=== PATIENT | female | born 1990 | race Two or more races ===

== ENCOUNTER 2017-05-13 20:22 | Emergency (ER) | payer OTHER ==
[2017-05-13 20:30] VITALS: BP 124/68; PULSE 96; TEMP 98.4; BMI 32.5
--- NOTE | 2017-05-13 20:56 | PDOC ---
History of Present Illness - General History Source: Patient Exam Limitations: No Limitations - History of Present Illness Initial Comments: 05/13/17 22:39 Patient is a 26 year old female, A0 who is 16 weeks , with a significant past medical history of anemia who presents to the ED with complaints of nausea/vomiting that began 3 days ago. Patient reports experiencing nausea and vomiting suddenly 3 days ago while at home. She reports experiencing 3 episodes of vomiting as well as 1 episodes of diarrhea. Patient reports experiencing upper midline abdominal pain secondary to vomiting. She reports experiencing slight fever for 3 days, stating that her other children have been showing feverish symptoms recently. Denies chest pain, Sob. Denies fever, chills. Denies out of state travellings. Denies any other symptoms. Allergies: None Social history: No smoking. No alcohol. No illicit drugs. Surgical history: None PMD: None <Karson Womack - Last Filed: 05/13/17 22:39> <Rajwinder Blevins - Last Filed: 05/13/17 22:44> - General Chief Complaint: Nausea/Vomiting Stated Complaint: COLD SYMPTOMS/16 WKS Time Seen by Provider: 05/13/17 20:47 Past History <Karson Womack - Last Filed: 05/13/17 22:39> - Past Medical History COPD: No - Suicide/Smoking/Psychosocial Hx Smoking History: Never smoked Have you smoked in the past 12 months: No Information on smoking cessation initiated: No Hx Alcohol Use: No Drug/Substance Use Hx: No Substance Use Type: None <Rajwinder Blevins - Last Filed: 05/13/17 22:44> - Past Medical History Allergies/Adverse Reactions: Allergies Allergy/AdvReac Type Severity Reaction Status Date / Time No Known Allergies Allergy Verified 05/13/17 20:30 Home Medications: Ambulatory Orders Nitrofurantoin Monohyd/M-Cryst [Macrobid -] 100 mg PO BID #6 capsule 05/13/17 Review of Systems - Review of Systems Able to Perform ROS?: Yes Comments:: 05/13/17 22:39 GENERAL/CONSTITUTIONAL: No fever or chills. No weakness. HEAD, EYES, EARS, NOSE AND THROAT: No change in vision. No ear pain or discharge. No sore throat. CARDIOVASCULAR: No chest pain or shortness of breath. RESPIRATORY: No cough, wheezing, or hemoptysis. GASTROINTESTINAL: +Nausea. +vomiting. +diarrhea. +Abdominal pain No constipation. GENITOURINARY: No dysuria, frequency, or change in urination. MUSCULOSKELETAL: No joint or muscle swelling or pain. No neck or back pain. SKIN: No rash NEUROLOGIC: No headache, vertigo, loss of consciousness, or change in strength/ sensation. ENDOCRINE: No increased thirst. No abnormal weight change. HEMATOLOGIC/LYMPHATIC: No anemia, easy bleeding, or history of blood clots. ALLERGIC/IMMUNOLOGIC: No hives or skin allergy. All Other Systems: Reviewed and Negative <Karson Womack - Last Filed: 05/13/17 22:39> *Physical Exam - Vital Signs Last Vital Signs Temp Pulse Resp BP Pulse Ox 98.4 F 96 H 20 124/68 100 05/13/17 20:25 05/13/17 20:25 05/13/17 20:25 05/13/17 20:25 05/13/17 20:25 - Physical Exam Comments: 05/13/17 22:39 GENERAL: Awake, alert, and fully oriented, in no acute distress HEAD: No signs of trauma EYES: PERRLA, EOMI, sclera anicteric, conjunctiva clear ENT: Auricles normal inspection, hearing grossly normal, nares patent, oropharynx clear without exudates. Moist mucosa NECK: Normal ROM, supple, no lymphadenopathy, JVD, or masses LUNGS: Breath sounds equal, clear to auscultation bilaterally. No wheezes, and no crackles HEART: Regular rate and rhythm, normal S1 and S2, no murmurs, rubs or gallops ABDOMEN: Soft, nontender, normoactive bowel sounds. No guarding, no rebound. No masses EXTREMITIES: Normal range of motion, no edema. No clubbing or cyanosis. No cords, erythema, or tenderness NEUROLOGICAL: Cranial nerves II through XII grossly intact. Normal speech, normal gait SKIN: Warm, Dry, normal turgor, no rashes or lesions noted. <Karson Womack - Last Filed: 05/13/17 22:39> - Vital Signs Last Vital Signs Temp Pulse Resp BP Pulse Ox 98.4 F 96 H 20 124/68 100 05/13/17 20:25 05/13/17 20:25 05/13/17 20:25 05/13/17 20:25 05/13/17 20:25 <Rajwinder Blevins - Last Filed: 05/13/17 22:44> ED Treatment Course - LABORATORY CBC & Chemistry Diagram: 05/13/17 21:23 05/13/17 21:23 - ADDITIONAL ORDERS Additional order review: Laboratory Results 05/13/17 05/13/17 22:20 21:23 Sodium 138 Potassium 3.4 L Chloride 104 Carbon Dioxide 24 Anion Gap 10 BUN 5 L Creatinine 0.5 L Creat Clearance w eGFR > 60 Random Glucose 78 Calcium 8.3 L Total Bilirubin 0.3 AST 10 L ALT 14 Alkaline Phosphatase 60 Total Protein 6.1 L Albumin 2.5 L Urine Color Ltyellow Urine Appearance Clear Urine pH 6.0 Ur Specific [place] 1.009 Urine Protein Negative Urine Glucose (UA) Negative Urine Ketones Trace H Urine Blood Negative Urine Nitrite Negative Urine Bilirubin Negative Urine Urobilinogen 2.0 H Ur Leukocyte Esterase 2+ H 05/13/17 21:23 Influenza Types A,B Antigen (CHRISTINE) - Final Nasopharyngeal Swab - Final 05/13/17 21:23 RBC 4.03 MCV 75.6 L MCHC 32.6 RDW 16.3 H MPV 8.9 Neutrophils % 76.0 Lymphocytes % 15.3 Monocytes % 7.5 Eosinophils % 0.6 Basophils % 0.6 - Medications Given in the ED: ED Medications Discontinued Medications Generic Name Dose Route Start Last Admin Trade Name Freq PRN Reason Stop Dose Admin Ondansetron HCl 4 mg 05/13/17 22:12 05/13/17 22:28 Zofran Injection IVPB 05/13/17 22:13 4 mg ONCE ONE Administration Potassium Chloride 40 meq 05/13/17 22:12 05/13/17 22:28 K-Dur - PO 05/13/17 22:13 40 meq ONCE ONE Administration Sodium Chloride 1,000 ml 05/13/17 20:57 05/13/17 21:37 Normal Saline - IV 05/13/17 20:58 1,000 ml ONCE ONE Administration <Karson Womack - Last Filed: 05/13/17 22:39> - LABORATORY CBC & Chemistry Diagram: 05/13/17 21:23 05/13/17 21:23 <Rajwinder Blevins - Last Filed: 05/13/17 22:44> *DC/Admit/Observation/Transfer - Attestations Scribe Attestion: 05/13/17 22:39 Documentation prepared by Karson Womack, acting as medical accounts receivable specialist for Rajwinder Blevins MD/DO. <Karson Womack - Last Filed: 05/13/17 22:39> - Discharge Dispostion Admit: No <Rajwinder Blevins - Last Filed: 05/13/17 22:44> Diagnosis at time of Disposition: UTI (urinary tract infection), Morning sickness, Gastroenteritis - Discharge Dispostion Disposition: HOME Condition at time of disposition: Improved - Prescriptions Prescriptions: Nitrofurantoin Monohyd/M-Cryst [Macrobid -] 100 mg PO BID #6 capsule - Referrals Referrals: ON STAFF,NOT [Primary Care Provider] - - Patient Instructions Printed Discharge Instructions: Hyperemesis Gravidarum, Urinary Tract Infection , DI for Viral Gastroenteritis -- Adult - Post Discharge Activity
[2017-05-13] MEDS ORDERED: SODIUM CHLORIDE 0.9% 500 ML INFUS.BAG IV ONE (20:57)
[2017-05-13 21:36] LABS: BASO % 0.6 % (0-2.0); EOS % 0.6 % (0-4.5); HEMATOCRIT 30.5 % (32.4-45.2); HEMOGLOBIN 9.9 GM/dL (10.7-15.3); LYMPH % 15.3 % (8-40); MCH 24.7 pg (25.7-33.7); MCHC 32.6 g/dl (32.0-36.0); MEAN CELL VOLUME 75.6 fl (80-96); MEAN PLT VOLUME 8.9 fl (7.5-11.1); MONO % 7.5 % (3.8-10.2); PLATELET COUNT 151 K/MM3 (134-434); RBC 4.03 M/mm3 (3.60-5.2); RDW 16.3 % (11.6-15.6); WHITE BLOOD COUNT 9.3 K/mm3 (4.0-10.0)
[2017-05-13 22:09] LABS: ALBUMIN 2.5 g/dl (3.4-5.0); ANION GAP 10 (8-16); BILIRUBIN,TOTAL 0.3 mg/dL (0.2-1.0); BLOOD UREA NITROGEN 5 mg/dL (7-18); CALCIUM 8.3 mg/dL (8.5-10.1); CHLORIDE 104 mmol/L (98-107); CO2 24 mmol/L (21-32); CREATININE 0.5 mg/dL (0.55-1.02); GLUCOSE,RANDOM 78 mg/dL (74-106); POTASSIUM 3.4 mmol/L (3.5-5.1); SGOT/AST 10 U/L (15-37); SGPT/ALT 14 U/L (12-78); SODIUM 138 mmol/L (136-145); TOT PROT 6.1 g/dl (6.4-8.2)
[2017-05-13 22:10] LABS: ALK PHOS 60 U/L (45-117)
[2017-05-13] MEDS ORDERED: ONDANSETRON 4 MG/2 ML VIAL IVPB ONE (22:12)
[2017-05-13] MEDS ORDERED: POTASSIUM CHLORIDE TABS 20 MEQ TABLET.ER (FP) PO ONE ×2 (22:12→22:23)
[2017-05-13] MEDS ORDERED: ONDANSETRON 4 MG/2 ML VIAL ONE (22:23)
[2017-05-13 22:34] LABS: URINE APPEARANCE CLEAR; URINE BILIRUBIN NEGATIVE (NEGATIVE); URINE BLOOD NEGATIVE (NEGATIVE); URINE COLOR LTYELLOW; URINE GLUCOSE (UA) NEGATIVE (NEGATIVE); URINE KETONE TRACE (NEGATIVE); URINE LEUK ESTERASE 2+ (NEGATIVE); URINE NITRITE NEGATIVE (NEGATIVE); URINE PROTEIN NEGATIVE (NEGATIVE)
[2017-05-13 22:37] LABS: EPI CELLS RARE /HPF (FEW); URINE BACTERIA RARE /hpf (NONE SEEN); URINE MUCUS RARE
[2017-05-13] MEDS ORDERED: NITROFURANTOIN MACROCRYSTAL 50 MG CAPSULE (FP) PO SCH (22:45)
[2017-05-13] MEDS ORDERED: NITROFURANTOIN MACROCRYSTAL 50 MG CAPSULE (FP) ONE (22:56)
== END 2017-05-13 23:03 | disposition home or self-care (01) ==
LOC: JER 20:22
PROC: 3E033GC Introduction of Other Therapeutic Substance into Peripheral Vein, Percutaneous Approach (ICD-10-PCS; principal; 2017-05-13)
DX: O26.892 Other specified pregnancy related conditions, second trimester (principal); O21.0 Mild hyperemesis gravidarum; O23.32 Infections of other parts of urinary tract in pregnancy, second trimester; O99.612 Diseases of the digestive system complicating pregnancy, second trimester; K52.9 Noninfective gastroenteritis and colitis, unspecified; Z3A.16 16 weeks gestation of pregnancy
CPT/HCPCS: 36415; 80053; 81003; 81015; 85025; 87804; 96372; 99283-25

== ENCOUNTER 2017-10-19 07:05 | Inpatient (IN) | payer OTHER ==
[2017-10-19 08:05] LABS: BASO % 0.8 % (0-2.0); EOS % 0.5 % (0-4.5); HEMATOCRIT 25.6 % (32.4-45.2); MCHC 31.1 g/dl (32.0-36.0); MEAN CELL VOLUME 70.8 fl (80-96); MONO % 7.6 % (3.8-10.2); NEUT % 72.1 % (42.8-82.8); PLATELET COUNT 143 K/MM3 (134-434); RBC 3.62 M/mm3 (3.60-5.2); RDW 20.8 % (11.6-15.6); WHITE BLOOD COUNT 10.4 K/mm3 (4.0-10.0)
[2017-10-19 08:09] VITALS: BMI 37.3
[2017-10-19] MEDS ORDERED: DINOPROSTONE 10 MG VAGINAL SUPPOSITORY VG ONE (08:20)
[2017-10-19 08:22] LABS: ALBUMIN 2.3 g/dl (3.4-5.0); ANION GAP 9 (8-16); BILIRUBIN,TOTAL 0.5 mg/dL (0.2-1.0); BLOOD UREA NITROGEN 6 mg/dL (7-18); CALCIUM 8.2 mg/dL (8.5-10.1); CHLORIDE 108 mmol/L (98-107); CO2 21 mmol/L (21-32); CREATININE 0.5 mg/dL (0.55-1.02); GLUCOSE,RANDOM 80 mg/dL (74-106); POTASSIUM 3.7 mmol/L (3.5-5.1); SGOT/AST 13 U/L (15-37); SGPT/ALT 14 U/L (12-78); SODIUM 138 mmol/L (136-145); TOT PROT 5.9 g/dl (6.4-8.2)
[2017-10-19 08:23] LABS: ALK PHOS 83 U/L (45-117)
[2017-10-19 08:26] LABS: INR 0.96 (0.82-1.09); PROTHROMBIN TIME (PATIENT) 10.8 SEC (9.7-13.0)
[2017-10-19] MEDS ORDERED: PROMETHAZINE HCL 25 MG/1 ML VIAL IVPUSH ONE (08:29)
[2017-10-19] MEDS ORDERED: BUTORPHANOL TARTRATE 1 MG/ML VIAL IVPB ONE ×2 (08:29→13:35)
[2017-10-19] MEDS ORDERED: ELECTROLYTE-148 SOLN 1,000 ML IV SCH (08:30)
[2017-10-19] MEDS ORDERED: SODIUM PHOSPHATE/NA BIPHOS 133 ML ENEMA PR ONE (08:31)
[2017-10-19] MEDS ORDERED: AMPICILLIN - 2 GM in SODIUM CHLORIDE 100 ML IVPB ONE (08:35)
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
[2017-10-19 09:23] LABS: URINE APPEARANCE CLEAR; URINE BILIRUBIN NEGATIVE (<2.0 mg/dL); URINE COLOR YELLOW; URINE GLUCOSE (UA) NEGATIVE (NEGATIVE); URINE KETONE NEGATIVE (NEGATIVE); URINE NITRITE NEGATIVE (NEGATIVE); URINE PROTEIN NEGATIVE (NEGATIVE); URINE UROBILINOGEN 4.0 E.U/dl mg/dL (0.2-1.0)
[2017-10-19 09:32] LABS: URINE LEUK ESTERASE 3+ (NEGATIVE)
[2017-10-19 09:44] LABS: EPI CELLS FEW /HPF (FEW); URINE MUCUS RARE
[2017-10-19 09:51] LABS: COCAINE, UR NEGATIVE ng/ml (CUTOFF=300); METHADONE, UR NEGATIVE ng/ml (CUTOFF=300); OPIATES, URI NEGATIVE ng/ml (CUTOFF=300); PHENCYCLIDINE,URINE NEGATIVE ng/ml (CUTOFF=25); URINE AMPHETAMINES NEGATIVE ng/ml (CUTOFF=500); URINE BARBITURATES NEGATIVE ng/ml (CUTOFF=200); URINE BENZODIAZEPINES NEGATIVE ng/ml (CUTOFF=200)
[2017-10-19] MEDS ORDERED: AMPICILLIN SODIUM 2 GM VIAL ONE (10:10)
[2017-10-19 10:53] LABS: ANISOCYTOSIS 3+; MACROCYTOSIS 0; PLATELET ESTIMATE DECREASED; TEAR DROP CELLS 1+
[2017-10-19] MEDS ORDERED: BUTORPHANOL TARTRATE 1 MG/ML VIAL ONE ×4 (11:11→13:40)
[2017-10-19] MEDS ORDERED: PROMETHAZINE HCL 25 MG/1 ML VIAL ONE ×2 (11:11→13:40)
[2017-10-19] MEDS ORDERED: AMPICILLIN - 1 GM in SODIUM CHLORIDE 100 ML IVPB SCH ×2 (12:35→14:00)
[2017-10-19] MEDS ORDERED: AMPICILLIN SODIUM 1 GM VIAL ONE (13:17)
[2017-10-19] MEDS ORDERED: PROMETHAZINE HCL 25 MG/1 ML VIAL IVPB ONE (13:35)
[2017-10-19] MEDS ORDERED: OXYTOCIN 20 UNITS in 0.9% NS 20 UNIT/1,000 ML INFUS.BAG IV ONE ×2 (15:11→16:51)
--- NOTE | 2017-10-19 15:18 | PN ---
Progress Note, Labor Vaginal Exam #1 Labor Exam Date: 10/19/17 Labor Exam Time: 15:05 Heart Rate (range): 130 Dilatation: 7-8 Effacement (%): 90 Amniotic Membrane Status: Ruptured (AROM clear) Presentation: Vertex/Position Station: -1 Remarks: fhr cat-2 , variable decels uc 1-2-3 min cervidil removesd 1.50 PM stadol 2 mg + phenrgan 25 mg iv stat given Selected Entries 10/19/17 14:00 Temperature 98.5 F Pulse Rate 105 H Blood Pressure 127/55 Vaginal Exam #2 Labor Exam Date: 10/19/17 Labor Exam Time: 15:16 Heart Rate (range): 140 Dilatation: 10 Effacement (%): 100 Amniotic Membrane Status: Ruptured Station: +2 Remarks: fhr cat-2 uc 1-23 min pt pushing
[2017-10-19] MEDS: OXYTOCIN 20 UNITS in 0.9% NS 20 UNIT/1,000 ML INFUS.BAG IV SCH ×2 (15:25→16:50)
[2017-10-19] MEDS ORDERED: LIDOCAINE HCL 1% PRESERVATIVE FREE - 30ML VIAL ONE (15:27)
[2017-10-19 15:45] LABS: ARTERIAL BLD GAS O2 SATURATION 11.8 % (90-98.9); ARTERIAL BLOOD GAS BASE EXCESS -4.2 meq/l (-2-2); ARTERIAL BLOOD GAS PCO2 52.7 mmHg (35-45); ARTERIAL BLOOD GAS PO2 11.3 mmHg (80-100); ARTERIAL BLOOD GAS pH 7.27 (7.35-7.45)
[2017-10-19 15:48] LABS: VENOUS PC02 42.2 mmHg (38-52); VENOUS PH 7.35 (7.32-7.42); VENOUS PO2 18.4 mmHg (28-48)
[2017-10-19] MEDS ORDERED: BENZOCAINE 20% 57 GM BOTTLE TP PRN (16:05)
[2017-10-19] MEDS ORDERED: oxyCODONE HCL 5 MG TABLET PO PRN (16:05)
[2017-10-19] MEDS ORDERED: BISACODYL 10 MG SUPP.RECT RC PRN (16:05)
[2017-10-19] MEDS ORDERED: BENZOCAINE 28 GM HEMORRHOIDAL OINTMENT TP PRN (16:05)
[2017-10-19] MEDS ORDERED: ACETAMINOPHEN 325 MG TABLET (FP) PO PRN (16:05)
[2017-10-19] MEDS ORDERED: METHYLERGONOVINE MALEATE 0.2 MG/1 ML AMP IM PRN (16:05)
[2017-10-19] MEDS ORDERED: WITCH HAZEL 50% (TUCKS) 40 PAD/JAR PAD TP PRN (16:05)
--- NOTE | 2017-10-19 16:30 | PN ---
Delivery - Delivery Vaginal Delivery: No Problems, Spontaneous (baby delivered vx position, ángela position, immediate oral & nasal suction was done . 1 st degree perineal laceration noted . sutured with chr catgut #2/0 under local anesthesia. Placenta delievered completely with membranes fllowed by IV pitocin. . bladder catheterized & emptied. 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
[2017-10-19] MEDS: IBUPROFEN 600 MG TABLET (FP) PO PRN (16:52)
[2017-10-19] MEDS ORDERED: ACETAMINOPHEN 325 MG TABLET (FP) ONE (16:54)
[2017-10-19] MEDS ORDERED: IBUPROFEN 600 MG TABLET (FP) PO ONE (16:54)
[2017-10-19] MEDS: FERROUS SO4 325 MG TABLET (FP) PO SCH (17:57)
--- NOTE | 2017-10-20 06:00 | PN ---
Post Progress Note - Subjective Subjective: no complains Post Day: 1 Type of Delivery: Vital Signs: Vital Signs Temperature 98.2 F 10/20/17 01:58 Pulse Rate 86 10/20/17 01:58 Respiratory Rate 20 10/20/17 01:58 Blood Pressure 114/56 10/20/17 01:58 O2 Sat by Pulse Oximetry (%) 100 10/19/17 16:45 Breast Exam: Yes: Soft, Other (BF ). No: Engorged Uterus: Yes: Fundus Firm, Fundus below umbilicus Lochia: Yes: Rubra Lochia, amount: Moderate Extremities: Yes: Calves non-tender Perineum: Yes: Intact, Laceration Activity: Ambulating - Labs Labs: CBC WBC 10.4 K/mm3 (4.0-10.0) H 10/19/17 07:25 RBC 3.62 M/mm3 (3.60-5.2) 10/19/17 07:25 Hgb 8.0 GM/dL (10.7-15.3) L 10/19/17 07:25 Hct 25.6 % (32.4-45.2) L D 10/19/17 07:25 MCV 70.8 fl (80-96) L 10/19/17 07:25 MCH 22.0 pg (25.7-33.7) L D 10/19/17 07:25 MCHC 31.1 g/dl (32.0-36.0) L 10/19/17 07:25 RDW 20.8 % (11.6-15.6) H 10/19/17 07:25 Plt Count 143 K/MM3 (134-434) 10/19/17 07:25 MPV 9.0 fl (7.5-11.1) 10/19/17 07:25 Absolute Neuts (auto) 7.5 # 10/19/17 07:25 Neutrophils % 72.1 % (42.8-82.8) 10/19/17 07:25 Lymphocytes % 19.0 % (8-40) D 10/19/17 07:25 Monocytes % 7.6 % (3.8-10.2) 10/19/17 07:25 Eosinophils % 0.5 % (0-4.5) 07/06/18 07:25 Basophils % 0.8 % (0-2.0) 10/19/17 07:25 Nucleated RBC % 0 % (0-0) 10/19/17 07:25 Hypochromia 0 10/19/17 07:25 Platelet Estimate Decreased 10/19/17 07:25 Polychromasia 1+ 10/19/17 07:25 Poikilocytosis 1+ 10/19/17 07:25 Anisocytosis 3+ 10/19/17 07:25 Microcytosis 3+ 10/19/17 07:25 Macrocytosis 0 10/19/17 07:25 Tear Drop Cells 1+ 10/19/17 07:25 Problem List - Problems (1) Post term over 40 weeks Code(s): O48.0 - POST-TERM (2) Anemia affecting Code(s): O99.019 - ANEMIA COMPLICATING , UNSPECIFIED TRIMESTER (3) History of inadequate care Code(s): O09.30 - SUPRVSN OF PREG W INSUFFICIENT ANTENAT CARE, UNSP TRIMESTER (4) Elective induction of labor planned Code(s): PZI0829 - (5) Normal vaginal delivery Code(s): O80 - ENCOUNTER FOR FULL-TERM UNCOMPLICATED DELIVERY (6) Encounter for routine follow-up Code(s): Z39.2 - ENCOUNTER FOR ROUTINE FOLLOW-UP Assessment/Plan stable anemia counselled repeat cbc today ct care
[2017-10-20] MEDS: FERROUS SO4 325 MG TABLET (FP) PO SCH ×2 (08:04→17:11)
[2017-10-20 08:30] LABS: BASO % 0.7 % (0-2.0); EOS % 0.6 % (0-4.5); HEMATOCRIT 22.6 % (32.4-45.2); MCH 21.8 pg (25.7-33.7); MCHC 30.8 g/dl (32.0-36.0); MEAN CELL VOLUME 70.7 fl (80-96); MEAN PLT VOLUME 9.3 fl (7.5-11.1); MONO % 7.3 % (3.8-10.2); NEUT % 73.4 % (42.8-82.8); PLATELET COUNT 134 K/MM3 (134-434); RDW 20.7 % (11.6-15.6); WHITE BLOOD COUNT 12.6 K/mm3 (4.0-10.0)
[2017-10-20] MEDS: PRENATAL VITAMINS W/ FOLIC ACID TABLET (FP) PO SCH (09:20)
[2017-10-20] MEDS: IBUPROFEN 600 MG TABLET (FP) PO PRN (09:25)
[2017-10-20] MEDS ORDERED: SENNOSIDES/DOCUSATE COMBO (SENNA PLUS) TABLET (UD) PO PRN (22:00)
--- NOTE | 2017-10-21 07:23 | DS ---
Physical Exam-KNOT BORER Vital Signs: Vital Signs Temperature 98.4 F 10/20/17 22:00 Pulse Rate 83 10/20/17 22:00 Respiratory Rate 20 10/20/17 22:00 Blood Pressure 111/59 10/20/17 22:00 O2 Sat by Pulse Oximetry (%) 100 10/19/17 16:45 Constitutional: Yes: Well Nourished, Pallor, Other (no c/o dizziness) Eyes: Yes: WNL HENT: Yes: WNL, Other (no c/o headache) Cardiovascular: Yes: Bruit Respiratory: Yes: WNL. No: SOB Gastrointestinal: Yes: WNL ...Rectal Exam: Yes: WNL ....Post : Yes: Uterus firm, Uterus non-tender, Moderate lochia rubra ( perineum intact s/p 1st degree laceration suturing) Breast(s): Yes: WNL (bf) Musculoskeletal: Yes: WNL Extremities: Yes: WNL. No: Calf Tenderness Edema: Yes Integumentary: Yes: WNL Wound/Incision: Yes: Clean/Dry Neurological: Yes: WNL, Alert, Oriented ...Motor Strength: WNL Psychiatric: Yes: WNL, Alert, Oriented Labs: CBC, BMP 10/20/17 06:20 10/19/17 07:25 Delivery - Delivery Vaginal Delivery: No Problems, Spontaneous (baby delivered vx position, ángela position, immediate oral & nasal suction was done . 1 st degree perineal laceration noted . sutured with chr catgut #2/0 under local anesthesia. Placenta delievered completely with membranes fllowed by IV pitocin. . bladder catheterized & emptied. pr exam mucosa & sphincter intact) Type of Anesthesia: Local Episiotomy/Laceration: Perineal Extension/lac, 1st degree EBL (cc): 300 (urine out put 50 ml ajsmine color ) Delivery, Single - Stages of Labor Date 1st Stage Initiatied: 10/19/17 Time 1st Stage Initiated: 09:30 Date 2nd Stage Initiated: 10/19/17 Time 2nd Stage Initiated: 15:16 Date of Delivery: 10/19/17 Time of Delivery: 15:22 Time Placenta Delivered: 15:25 Placenta: Yes: Spontaneous, Uterine Exploration - Condition of Mattress Weaver/Nuclear Station Operator Present: No Gender: Female Weight: 7 lb 8 oz Position: Right, OA Total Hours ROM (Hrs/Mins): 0hrs 20min - 1 Minute Total Score: 9 5 Minutes Total Score: 9 - [place] Feeding Plan Initial Plan: Exclusive throughout hospitalization Remarks - Remarks Remarks: 27 yrs , 40.5 weeks admitted for induction of labor cervidil inserted 10/19/17 2 doses of iv Ampicillin were given for gbs prophylaxis stadol + phenrgan was given for labor analgesia intrapartum course uneventful pt is severely anemic but not symptomatic hemodynamically stable. anemia counselled declined blood transfusion discharge today Discharge Summary Reason For Visit: INDUCTION OF LABOR Current Active Problems Anemia affecting (Acute) Elective induction of labor planned (Acute) Encounter for routine follow-up (Acute) History of inadequate care (Acute) Normal vaginal delivery (Acute) Post term over 40 weeks (Acute) Condition: Stable - Instructions Diet, Activity, Other Instructions: Post Instructions DIET: Continue good diet high in protein, calcium, and iron rich foods. Drink at least eight (8) glasses of water daily in addition to other fluids. ___ Regular diet MEDICATIONS: Continue vitamins and iron as previously directed. Motrin and Tylenol may be taken for minor discomfort. ACTIVITY: Mild to moderate exercise may be started in two (2) weeks. Take frequent rest periods. Resume normal activity after six (6) week check up. WOUND CARE OF OPERATIVE SITE: Continue use of perineal bottle until vaginal discharge stops. Keep area clean. Shower daily. Keep abdominal wound dry. Report any drainage or redness to physician. Tub baths, tampons and douches are not permitted for [address] Breast feeding & or Bottle feeding BREAST CARE: (For those that are not breast feeding): If engorgement occurs: Wear tight fitting bra. Take Tylenol or Motrin for pain. Apply cold packs (ice in bags to each breast ) FAMILY PLANNING: There are many control alternatives to pursue and they should be discussed at your first office visit. You may resume sexual activity after your six (6) week check up. (Remember, breast feeding is not a contraceptive) NEXT PHYSICIAN APPOINTMENT: Be certain to call for a six (6) week appointment, unless otherwise directed. Call Clinic or got to Emergency Dept if you have any of the following: Heavy vaginal bleeding Painful urination Leg pain Unusual odor noted to vaginal bleeding High fever Red streaking noted on breast Referrals: Olamide Hess MD [Staff Physician] - Disposition: HOME - Home Medications Comprehensive Discharge Medication List: Ambulatory Orders Ferrous Sulfate [Feosol] 325 mg PO DAILY 10/19/17 Vitamins (Sjr) - 1 tab PO DAILY 10/19/17 Acetaminophen [Tylenol .Regular Strength -] 650 mg PO Q3H PRN tablet 10/20/17 Benzocaine [Americaine 20% Addison -] 1 spray TP PRN PRN bottle 10/20/17 Ferrous Sulfate [Feosol] 325 mg PO BIDWM #60 tab 10/20/17 Ibuprofen [Motrin -] 200 mg PO Q4H PRN tablet 10/20/17 Vitamins (Sjr) - 1 tab PO DAILY #60 tablet 10/20/17 Sennosides/Docusate Sodium [Pericolace -] 2 tablet PO HS PRN #60 tablet Witch Kathryn 50% (Tucks) [Tucks Pads -] 1 pad TP PRN PRN pad 10/20/17
[2017-10-21] MEDS: FERROUS SO4 325 MG TABLET (FP) PO SCH (08:00)
[2017-10-21] MEDS: PRENATAL VITAMINS W/ FOLIC ACID TABLET (FP) PO SCH (09:50)
[2017-10-21 14:17] VITALS: BP 116/58; PULSE 81; TEMP 98.1
== END 2017-10-21 12:20 | disposition home or self-care (01) | DRG 560 ==
LOC: JLDR 07:05 → J3W 17:10
PROVIDERS: ADMIT Obstetrics & Gynecology; ATTEND Obstetrics & Gynecology
PROC: 10E0XZZ Delivery of Products of Conception, External Approach (ICD-10-PCS; principal; 2017-10-19)
PROC: 0W8NXZZ Division of Female Perineum, External Approach (ICD-10-PCS; 2017-10-19)
PROC: 0HQ9XZZ Repair Perineum Skin, External Approach (ICD-10-PCS; 2017-10-19)
PROC: 3E0P7VZ Introduction of Hormone into Female Reproductive, Via Natural or Artificial Opening (ICD-10-PCS; 2017-10-19)
DX: O70.0 First degree perineal laceration during delivery (principal); O48.0 Post-term pregnancy; O99.02 Anemia complicating childbirth; Z3A.40 40 weeks gestation of pregnancy; Z37.0 Single live birth
CPT/HCPCS: 36415; 36600; 59409; 80053; 80307; 81003; 81015; 82803; 83036; 85025; 85610; 85730; 86593; 86762; 86850; 86900; 86901; 87389